=== PATIENT | female | born 1990 ===

== ENCOUNTER 2025-02-08 09:56 | Outpatient (REF) | payer OTHER, SELFPAY ==
--- NOTE | ~2025-02-08 | US_ITS ---
EXAMINATION: US EXTREMITY NON-VASCULAR LIMITED LEFT HISTORY: MILD TENDERNESS LEFT POPLITEAL , R/O FERNÁNDEZ'S CYST COMPARISON: There are no prior studies available for comparison. FINDINGS: Sonographic examination of the left popliteal fossa was performed. No Fernández's cyst is identified. US/US Extremity Nonvas Limited LT IMPRESSION: No evidence of a Fernández's cyst in the left popliteal fossa. Electronically signed by: Won Toney MD 02/08/2025 01:52 PM EDT
--- NOTE | ~2025-02-08 | US_ITS ---
EXAMINATION: US EXTREMITY NON-VASCULAR LIMITED RIGHT HISTORY: MILD TENDERNESS RIGHT POPLITEAL, R/O FERNÁNDEZ'S CYST COMPARISON: There are no prior studies available for comparison. FINDINGS: Sonographic examination of the right popliteal fossa was performed. No Fernández's cyst is identified. US/US Extremity Nonvas Limited RT IMPRESSION: No evidence of a right popliteal fossa Fernández's cyst. Electronically signed by: Won Toney MD 02/08/2025 01:52 PM EDT
== END 2025-02-08 09:57 | disposition home or self-care (01) ==
LOC: HO.UMASIMG 09:56
PROVIDERS: Visit Provider Emergency Medicine
DX: M25.562 Pain in left knee (principal); M25.561 Pain in right knee
CPT/HCPCS: 76882

== ENCOUNTER → 2025-02-08 13:00 | Outpatient (BNV) | payer OTHER, SELFPAY | PROVIDERS: Visit Provider Radiology Diagnostic Radiology | DX: R29.898 Other symptoms and signs involving the musculoskeletal system (principal) | CPT/HCPCS: 76882 ==